=== PATIENT | female | born 1950 | race Caucasian/White ===

== ENCOUNTER → 2016-09-14 | Outpatient (CLI) | payer MEDICARE, OTHER ==
[~2016-09-14] MED LIST: ALEVE220 MG PO; ASPIRIN 81M81 MG/TA2 PO; ATENOLOL PO; BENADRYL PO; BETAMETHASONE D0.05% TP; CELEBREX; CELEBREX 200MG200 MG PO; CETIRIZINE; DOXYCYCLINE 10100 MG PO; FLOMAX 0.40.4 MG/CAP PO; INDOCIN25 MG PO; LEVAQUIN 5500 MG/TAB PO; LORTAB 5/500 501 TAB PO; LORTAB 7.5/5001 TAB PO; MULTIVITAMIN1 CTB PO; MYRBETR50MG PO; NEXIUM 40MG40 MG PO; PHENERGAN W/CO120 ML PO; PIROXICAM; PROBENECID PO; TOVIAZ8 MG PO; TRIAMCINOLONE AC0.13 TP; ULORIC40 MG PO; UROCIT PO; VESICARE PO; WELLBUTRIN XL300 M1 PO; ZITHROMAX TRI-500 MG PO; ZOFRAN 4MG T4 MG/TAB PO; [UNRECOGNIZED DRUG - OTHER]; [UNRECOGNIZED DRUG - REMARK]
== END ==
LOC: MC.RAD 12:45
DX: Z12.31 Encounter for screening mammogram for malignant neoplasm of breast (principal); Z80.3 Family history of malignant neoplasm of breast

== ENCOUNTER → 2016-12-22 | Outpatient (CLI) | payer MEDICARE, OTHER | LOC: COL.RAD 07:43 | DX: Q61.01 Congenital single renal cyst (principal) ==

== ENCOUNTER → 2017-10-08 | Outpatient (CLI) | payer MEDICARE, OTHER | LOC: MC.RAD 08:58 | DX: Z12.31 Encounter for screening mammogram for malignant neoplasm of breast (principal) ==

== ENCOUNTER 2017-10-28 12:21 | Emergency (ER) | payer MEDICARE, OTHER ==
[~2017-10-28] VITALS: Ht 160 cm; Wt 109.1 kg
[2017-10-28 12:22] VITALS: TEMP 99.1
[2017-10-28 13:16] LABS: BASO % 0.4 % (0.0-2.0); EOS # 0.7 (0.0-0.7); EOS % 9.2 % (0-4.0); GRAN % 49.5 % (42.2-75.2); HEMATOCRIT 38.2 % (37.0-47.0); LYMPH # 2.5 (1.2-3.4); LYMPH % 31.2 % (20.0-51.0); MEAN CELL VOLUME 88 fl (80.0-100.0); MEAN CORPUSCULAR HEMOGLOBIN 30 pg (27.0-31.0); MEAN CORPUSCULAR HGB CONC 34 g/dl (33.0-37.0); MONO # 0.8 (0.1-0.6); MONO % 9.3 % (1.7-9.3); PLATELET COUNT 166 K/mm3 (130-400); RED BLOOD COUNT 4.36 M/mm3 (4.10-5.30); REDCELL DISTRIBUTION WIDTH-CV 12.5 % (11.5-14.5)
[2017-10-28 13:19] LABS: INR 1.1 (0.8-3.0); PROTHROMBIN TIME 12.4 SECONDS (9.7-12.8)
[2017-10-28 13:21] LABS: PARTIAL THROMBOPLASTIN TIME 30.6 SECONDS (26.0-37.0)
[2017-10-28 13:26] LABS: ALANINE AMINOTRANSFERASE 27 U/L (9-52); ALKALINE PHOSPHATASE 69 U/L (50-136); ANION GAP 13 mmol/L (7-16); AST,SGOT 21 U/L (15-37); BLOOD UREA NITROGEN 19 mg/dL (7-17); CALCIUM 9.1 mg/dL (8.4-10.2); CARBON DIOXIDE 25 mmol/L (22-30); CHLORIDE 107 mmol/L (98-107); CREATININE, serum 0.82 mg/dL (0.52-1.25); GLUCOSE 114 mg/dL (74-106); POTASSIUM 3.8 mmol/L (3.4-5.0); SODIUM 145 mmol/L (137-145); TOTAL PROTEIN 7.2 gm/dL (6.4-8.2)
[2017-10-28 13:31] LABS: C-REACTIVE PROTEIN < 0.5 mg/dL (0.0-0.9)
[2017-10-28 13:35] LABS: TROPONIN-I < 0.012 ng/mL (0.000-0.034)
[2017-10-28] MEDS ORDERED: CARDIZEM120 MG PO (13:37)
[2017-10-28] MEDS ORDERED: ZESTRIL40 MG PO (13:38)
[2017-10-28] MEDS ORDERED: NITROSTAT0.4 MG/TAB SL (13:39)
[2017-10-28] MEDS ORDERED: CATAPRES-TTS 10.1 M1 TD (13:41)
[2017-10-28] MEDS ORDERED: VESICARE10 MG PO (13:42)
[2017-10-28] MEDS ORDERED: ULORIC40 MG PO (13:43)
[2017-10-28] MEDS ORDERED: NEXIUM 40MG40 MG PO (13:44)
[2017-10-28] MEDS ORDERED: WELLBUTRIN XL150 MG PO (13:45)
[2017-10-28] MEDS ORDERED: NORCO 325 MG-51 TAB PO (13:46)
[2017-10-28] MEDS ORDERED: TRIAMCINOLONE A15 G3 (13:48)
[2017-10-28] MEDS ORDERED: DIPROLENE 0.05%50 GM TOP (13:49)
[2017-10-28] MEDS ORDERED: ESTRACE0.1 MG/GM TOP (13:50)
[2017-10-28] MEDS ORDERED: ALEVE 220MG220 MG PO (13:53)
[2017-10-28] MEDS ORDERED: ZOFRAN 4MG T4 MG/TAB PO (14:15)
[2017-10-28 14:25] VITALS: BP 133/84; PULSE 54
== END 2017-10-28 14:28 | disposition home or self-care (01) ==
LOC: COL.ER 12:21
PROVIDERS: Emergency Medicine
DX: K62.5 Hemorrhage of anus and rectum (principal); R11.0 Nausea; K21.9 Gastro-esophageal reflux disease without esophagitis; Z79.52 Long term (current) use of systemic steroids
CPT/HCPCS: J2405; J7030

== ENCOUNTER → 2018-06-23 | Emergency (ER) | payer MEDICARE, OTHER ==
[~2018-06-23] VITALS: Ht 165.1 cm; Wt 109.5 kg
[~2018-06-23] MED LIST changes: +ALEVE 220MG220 MG PO; +CARDIZEM120 MG PO; +CATAPRES-TTS 10.1 M1 TD; +DIPROLENE 0.05%50 GM TOP; +ESTRACE0.1 MG/GM TOP; +NITROSTAT0.4 MG/TAB SL; +NORCO 325 MG-51 TAB PO; +TRIAMCINOLONE A15 G3; +VESICARE10 MG PO; +WELLBUTRIN XL150 MG PO; +ZESTRIL40 MG PO
[2018-06-23 12:11] VITALS: TEMP 97.7
[2018-06-23 15:26] VITALS: BP 133/77; PULSE 71
== END ==
LOC: COL.ER 12:07
DX: M79.661 Pain in right lower leg (principal); I25.10 Atherosclerotic heart disease of native coronary artery without angina pectoris
CPT/HCPCS: L1846; Q4041

== ENCOUNTER → 2019-01-02 | Outpatient (CLI) | payer MEDICARE, OTHER | LOC: MC.RAD 09:02 | DX: Z12.31 Encounter for screening mammogram for malignant neoplasm of breast (principal) ==

== ENCOUNTER → 2019-03-10 | Outpatient (CLI) | payer MEDICARE, OTHER | LOC: COL.RAD 08:34 | DX: N28.1 Cyst of kidney, acquired (principal) ==

== ENCOUNTER → 2019-07-23 | Outpatient (CLI) | payer MEDICARE, OTHER | LOC: COL.VAS 07:51 | DX: M79.89 Other specified soft tissue disorders (principal); Z96.652 Presence of left artificial knee joint ==

== ENCOUNTER → 2019-08-01 | Outpatient (CLI) | payer MEDICARE, OTHER | LOC: COL.VAS 10:38 | DX: Z13.6 Encounter for screening for cardiovascular disorders (principal); M79.89 Other specified soft tissue disorders; M79.662 Pain in left lower leg ==

== ENCOUNTER → 2020-01-22 | Outpatient (CLI) | payer MEDICARE, OTHER | LOC: MC.RAD 12:49 | DX: Z12.31 Encounter for screening mammogram for malignant neoplasm of breast (principal) ==

== ENCOUNTER 2020-02-21 17:13 | Emergency (ER) | payer MEDICARE, OTHER ==
[~2020-02-21] VITALS: Ht 162.6 cm; Wt 112.7 kg
[2020-02-21 19:59] LABS: ANION GAP 8 mmol/L (7-16); BLOOD UREA NITROGEN 31 mg/dL (7-17); CALCIUM 9.2 mg/dL (8.4-10.2); CARBON DIOXIDE 27 mmol/L (22-30); CHLORIDE 104 mmol/L (98-107); CREATININE, serum 0.84 (0.52-1.25); GLUCOSE 111 mg/dL (74-106); SODIUM 138 mmol/L (137-145)
[2020-02-21 20:06] LABS: C-REACTIVE PROTEIN < 0.5 mg/dL (0.0-0.9)
[2020-02-21 20:09] LABS: BASO % 0.4 % (0.0-2.0); EOS # 1.2 (0.0-0.7); EOS % 12.7 % (0-4.0); GRAN # 4.5 (1.4-6.5); GRAN % 46.1 % (42.2-75.2); HEMATOCRIT 38.3 % (37.0-47.0); HEMOGLOBIN 13.4 g/dl (12.5-16.0); LYMPH % 30.7 % (20.0-51.0); MEAN CELL VOLUME 86 fl (80.0-100.0); MEAN CORPUSCULAR HEMOGLOBIN 30 pg (27.0-31.0); MEAN CORPUSCULAR HGB CONC 35 g/dl (33.0-37.0); MEAN PLATELET VOLUME 11.5 fl (7.4-10.4); MONO % 9.8 % (1.7-9.3); PLATELET COUNT 190 K/mm3 (130-400); RED BLOOD COUNT 4.46 M/mm3 (4.10-5.30); REDCELL DISTRIBUTION WIDTH-CV 12.3 % (11.5-14.5)
[2020-02-21] MEDS ORDERED: DOXYCYCLINE 10100 MG PO (20:52)
[2020-02-21 21:00] VITALS: BP 146/74; PULSE 65; TEMP 97.8
== END 2020-02-21 21:09 | disposition home or self-care (01) ==
LOC: COL.ER 17:13
PROVIDERS: Physician Assistant
DX: L03.116 Cellulitis of left lower limb (principal); I10 Essential (primary) hypertension; Z90.710 Acquired absence of both cervix and uterus; Z95.9 Presence of cardiac and vascular implant and graft, unspecified

== ENCOUNTER → 2020-04-05 | Outpatient (CLI) | payer MEDICARE, OTHER | LOC: COL.RAD 07:15 | DX: K21.9 Gastro-esophageal reflux disease without esophagitis (principal) | CPT/HCPCS: A9541 ==

== ENCOUNTER 2021-01-07 06:18 | Emergency (ER) | payer MEDICARE, OTHER ==
[~2021-01-07] VITALS: Ht 162.6 cm; Wt 115.9 kg
[2021-01-07 06:24] VITALS: BP 178/90; TEMP 97.4
[2021-01-07 06:44] VITALS: PULSE 66
== END 2021-01-07 06:44 | disposition home or self-care (01) ==
LOC: COL.ER 06:18
DX: S30.861A Insect bite (nonvenomous) of abdominal wall, initial encounter (principal); S70.311A Abrasion, right thigh, initial encounter; W57.XXXA Bitten or stung by nonvenomous insect and other nonvenomous arthropods, initial encounter

== ENCOUNTER → 2021-02-03 | Outpatient (CLI) | payer MEDICARE, OTHER ==
[~2021-02-03] MED LIST changes: +ALDACTONE 25MG25 M1 PO; +BENADRYL ALLERG25 M2 PO; +COZAAR 25MG25 MG/TAB PO; +LASIX 40MG TABL40 MG PO
== END ==
LOC: MC.RAD 07:48
DX: Z12.31 Encounter for screening mammogram for malignant neoplasm of breast (principal)

== ENCOUNTER 2021-04-15 08:38 | Day surgery (SDC) | payer MEDICARE, OTHER ==
[~2021-04-15] VITALS: Ht 162.7 cm; Wt 120.7 kg
[2021-04-15] VITALS (16 sets, daily range): BP systolic 100–141; BP diastolic 55–74; PULSE 50–63; TEMP 97.7
[~2021-04-15 08:38] MED LIST changes: -ALDACTONE 25MG25 M1 PO; -BENADRYL ALLERG25 M2 PO; -COZAAR 25MG25 MG/TAB PO; -LASIX 40MG TABL40 MG PO
[2021-04-15 09:44] LABS: HEMOGLOBIN 12.4 g/dl (12.5-16.0); MEAN CELL VOLUME 89 fl (80.0-100.0); MEAN CORPUSCULAR HEMOGLOBIN 31 pg (27.0-31.0); MEAN CORPUSCULAR HGB CONC 35 g/dl (33.0-37.0); MEAN PLATELET VOLUME 11.1 fl (7.4-10.4); PLATELET COUNT 197 K/mm3 (130-400); RED BLOOD COUNT 3.98 M/mm3 (4.10-5.30); REDCELL DISTRIBUTION WIDTH-CV 12.8 % (11.5-14.5)
[2021-04-15 09:48] LABS: HEMATOCRIT 35.6 % (37.0-47.0)
[2021-04-15 09:50] LABS: INR 1.1 (0.8-3.0); PROTHROMBIN TIME 11.9 SECONDS (9.7-12.8)
[2021-04-15 09:53] LABS: PARTIAL THROMBOPLASTIN TIME 28.2 SECONDS (26.0-37.0)
[2021-04-15 09:57] LABS: ALBUMIN 4.1 gm/dL (3.5-5.0); BILIRUBIN,TOTAL 1.4 mg/dL (0.0-1.0); CALCIUM 9.5 mg/dL (8.4-10.2); CREATININE, serum 1.24 (0.52-1.25); POTASSIUM 4.2 mmol/L (3.4-5.0); TOTAL PROTEIN 7.2 gm/dL (6.4-8.2)
[2021-04-15] MEDS ORDERED: ALDACTONE 25MG25 M1 PO (10:00)
[2021-04-15] MEDS ORDERED: BENADRYL ALLERG25 M2 PO (10:01)
[2021-04-15] MEDS ORDERED: COZAAR 25MG25 MG/TAB PO (10:02)
[2021-04-15] MEDS ORDERED: LASIX 40MG TABL40 MG PO (10:04)
--- NOTE | 2021-04-15 11:25 | NUR ---
SEE MERGE FOR ALL MEDICATION ADMINISTRATION, INTRA PROCEDURE SEDATION ASSESSMENTS
--- NOTE | 2021-04-15 17:00 | NUR ---
Pt assisted up to restroom following 4 hr bedrest period. Upon walking back into room, pt reported bleeding from rt groin venous puncture site. Pt assisted back to bed. Manual pressure held to groin site x10 minutes. Bleeding stops with pressure. Area cleaned and new sterile dressing applied. Dr Jasmine notified of bleeding, he states pt should remain in bed for additional hour, then attempt to walk again. If no further bleeding at that time, pt may discharge home. Air was also removed from TR band in 2ml increments beginning at 1420. No bleeding from rt radial puncuture site. It was dressed with folded 2x2 and bandaid. DC instructions have also been reviewed with pt and . Both express understanding. They also express understanding of additional bedrest time due to bleeding from rt groin site. Call light in reach.
--- NOTE | 2021-04-15 18:21 | NUR ---
Pt assisted out of bed to attempt abmulation in servin. She walks 50 feet with no further from rt groin site. Dressing remains clean, dry and intact. INT DC'd with catheter intact. She is assisted out to 's car by wheelchair with belongings.
== END 2021-04-15 18:23 | disposition home or self-care (01) ==
LOC: COL.CAR 08:38
PROVIDERS: Internal Medicine Cardiovascular Disease
DX: I25.10 Atherosclerotic heart disease of native coronary artery without angina pectoris (principal); I10 Essential (primary) hypertension; I87.2 Venous insufficiency (chronic) (peripheral); I48.0 Paroxysmal atrial fibrillation; R94.39 Abnormal result of other cardiovascular function study; Z79.82 Long term (current) use of aspirin; Z79.899 Other long term (current) drug therapy
CPT/HCPCS: C1769; C1894; J1644; J2250; J2405; J3010; Q9967

== ENCOUNTER → 2022-02-06 | Outpatient (CLI) | payer MEDICARE, OTHER ==
[~2022-02-06] MED LIST changes: +ALDACTONE 25MG25 M1 PO; +BENADRYL ALLERG25 M2 PO; +COZAAR 25MG25 MG/TAB PO; +LASIX 40MG TABL40 MG PO
== END ==
LOC: MC.RAD 07:50
DX: Z12.31 Encounter for screening mammogram for malignant neoplasm of breast (principal)

== ENCOUNTER → 2023-12-14 | Outpatient (CLI) | payer MEDICARE, OTHER ==
[~2023-12-14] MED LIST changes: +PROAIR HFA0.09 MG/AC IH
== END ==
LOC: COL.RAD 08:32
DX: M25.561 Pain in right knee (principal)
CPT/HCPCS: A9503-JZ

== ENCOUNTER 2024-02-07 07:36 | Emergency (ER) | payer MEDICARE, OTHER ==
[~2024-02-07] VITALS: Ht 160 cm; Wt 105.5 kg
[2024-02-07 07:41] VITALS: TEMP 97.7
[2024-02-07 09:26] LABS: BASO % 0.2 % (0.0-2.0); EOS # 0.1 K/mm3 (0.0-0.7); EOS % 1.5 % (0.0-4.0); GRAN # 5.4 K/mm3 (1.4-6.5); GRAN % 61.8 % (42.2-75.2); HEMATOCRIT 40.6 % (37.0-47.0); HEMOGLOBIN 13.5 g/dl (12.5-16.0); LYMPH # 2.3 K/mm3 (1.2-3.4); LYMPH % 26.7 % (20.0-51.0); MEAN CELL VOLUME 89 fl (80.0-100.0); MEAN CORPUSCULAR HEMOGLOBIN 30 pg (27-31); MEAN CORPUSCULAR HGB CONC 33 g/dl (33.0-37.0); MEAN PLATELET VOLUME 12.3 fl (7.4-10.4); MONO # 0.8 K/mm3 (0.1-0.6); MONO % 9.5 % (1.7-9.3); PLATELET COUNT 160 K/mm3 (130-400); RED BLOOD COUNT 4.55 M/mm3 (4.10-5.30)
[2024-02-07 09:36] LABS: ALANINE AMINOTRANSFERASE 10 U/L (0-55); ALBUMIN 3.6 g/dL (3.4-4.8); ALKALINE PHOSPHATASE 44 U/L (40-150); ANION GAP 9 mmol/L (7-16); AST,SGOT 14 U/L (5-34); BILIRUBIN,TOTAL 2.3 mg/dL (0.2-1.2); BLOOD UREA NITROGEN 29 mg/dL (10-20); CALCIUM 9.3 mg/dL (8.4-10.2); CHLORIDE 109 mEq/L (98-107); CREATININE, serum 1.16 mg/dL (0.57-1.11); GLUCOSE 109 mg/dL (70-99); POTASSIUM 4.2 mEq/L (3.5-4.5); SODIUM 142 mEq/L (136-145); TOTAL PROTEIN 6.9 g/dl (6.2-8.1)
[2024-02-07 09:42] LABS: TROPONIN-I < 0.010 ng/mL (0.00-0.033)
[2024-02-07] MEDS ORDERED: *Potassium Replacement Protocol MC SCH (09:45)
[2024-02-07] MEDS ORDERED: NS 100 ML IV SCH (10:25)
[2024-02-07] MEDS ORDERED: Iohexol 300 - 100 ML VIAL IV ONE (10:25)
[2024-02-07 11:25] VITALS: BP 122/59; PULSE 54
== END 2024-02-07 11:32 | disposition home or self-care (01) ==
LOC: COL.ER 07:36
PROVIDERS: Personal Emergency Response Attendant
DX: R20.2 Paresthesia of skin (principal)
CPT/HCPCS: Q9967

== ENCOUNTER → 2024-02-12 | Outpatient (CLI) | payer MEDICARE, OTHER | LOC: MC.RAD 07:34 | DX: Z12.31 Encounter for screening mammogram for malignant neoplasm of breast (principal); R92.0 Mammographic microcalcification found on diagnostic imaging of breast ==

== ENCOUNTER 2024-03-04 07:51 | Day surgery (SDC) | payer MEDICARE, OTHER ==
[~2024-03-04] VITALS: Ht 160 cm; Wt 107.8 kg
[~2024-03-04 07:51] MED LIST changes: +LR 1,000 ML IV SCH
[2024-03-04] MEDS ORDERED: COREG12.5 MG PO (09:20)
[2024-03-04] MEDS ORDERED: DUPIXENT P200 MG/1.1 SQ (09:21)
[2024-03-04] MEDS ORDERED: DIFLUCAN150 MG PO (09:23)
[2024-03-04] MEDS ORDERED: JARDIANCE10 (09:24)
[2024-03-04] MEDS ORDERED: Lidocaine PF 2% (20 MG/ML) 5 ML VIAL ONE (09:26)
[2024-03-04] MEDS ORDERED: Ondansetron 4 MG/2 ML VIAL ONE (09:26)
[2024-03-04] MEDS ORDERED: fentaNYL 50 MCG/ML 2 ML VIAL ONE (09:27)
[2024-03-04] MEDS ORDERED: ANTIVERT 12.512.5 MG PO (09:27)
[2024-03-04] MEDS ORDERED: Midazolam 2 MG/2 ML VIAL ONE (09:27)
[2024-03-04] MEDS ORDERED: PRIL40 PO (09:28)
[2024-03-04] MEDS ORDERED: DITROPAN 5MG TAB5 MG PO (09:29)
[2024-03-04] MEDS ORDERED: CRESTOR 10MG10 MG PO (09:30)
[2024-03-04] MEDS ORDERED: PROLIA60 MG/ML SQ (09:31)
[2024-03-04] MEDS ORDERED: ULORIC40 MG PO (09:31)
[2024-03-04] MEDS ORDERED: MAGNESIUM OXID500 MG PO (09:32)
[2024-03-04] MEDS ORDERED: VITAMIND3 5000 PO (09:33)
[2024-03-04] MEDS ORDERED: ALLEGRA 180MG180 MG PO (09:33)
[2024-03-04] MEDS ORDERED: ASPIRIN 81M81 MG/TA2 PO (09:34)
[2024-03-04] MEDS ORDERED: CLINDAMYCIN 900 MG/50 ML IV ONE (10:00)
[2024-03-04] MEDS ORDERED: [UNRECOGNIZED DRUG - OTHER] TP (10:14)
[2024-03-04 10:19] VITALS: BP 114/60; PULSE 51; TEMP 97.4
[2024-03-04] MEDS ORDERED: NS Flush 25 ML IV Bag IV ONE (10:30)
[2024-03-04] MEDS ORDERED: BUPivacaine PF 0.5% w EPI (1:200,000) 10 ML VIAL SQ ONE (11:28)
[2024-03-04] MEDS ORDERED: LIDOCAINE IJ ONE (11:28)
[2024-03-04] MEDS ORDERED: fentaNYL 50 MCG/ML 1 ML SYRINGE/VIAL [PACU/SDC ONLY] IV SCH (13:22)
[2024-03-04] MEDS ORDERED: NORCO 325 MG-51 TAB PO (13:28)
[2024-03-04] MEDS ORDERED: Morphine 4 MG/ML VIAL IV PRN (13:30)
[2024-03-04] MEDS ORDERED: Ondansetron 4 MG/2 ML VIAL IV PRN (13:30)
[2024-03-04 13:45] VITALS: BP 118/83; PULSE 60; TEMP 97.5
[2024-03-04 14:00] VITALS: BP 124/73; PULSE 56
[2024-03-04 14:10] VITALS: BP 128/62; PULSE 56
--- NOTE | 2024-03-04 14:30 | NUR ---
1345 RETURNS TO ROOM 7 PER CART WITH HOB ELEVATED 40 DEGREES. AWAKE, ALERT, RESP UNLABORED. VITAL SIGNS OBTAINED. RIGHT BREAST DRESSING CLEAN DRY AND INTACT. RIGHT BREAST/AXILLA SOFT WITH GENTLE PALPATION. REPORTS MILD DISCOMFORT. DENIES NEED FOR PAIN MED. CALL LIGHT AT SIDE, IN ROOM. 1400 HOB ELEVATED 75 DEGREES. TOLERATES PO SODA WITHOUT NAUSEA. DISCHARGE INSTRUCTIONS REVIEWED. PATIENT VERBALIZES UNDERSTANDING. COPY PROVIDED IN DISCHARGE FOLDER 9690 SITS ON EDGE OF CART. DRESSES SELF WITH MINIMAL ASSIST FROM
== END 2024-03-04 14:30 | disposition home or self-care (01) ==
LOC: SDCO 07:51
DX: C50.411 Malignant neoplasm of upper-outer quadrant of right female breast (principal); E11.22 Type 2 diabetes mellitus with diabetic chronic kidney disease; I12.9 Hypertensive chronic kidney disease with stage 1 through stage 4 chronic kidney disease, or unspecified chronic kidney disease; N18.30 Chronic kidney disease, stage 3 unspecified; K21.9 Gastro-esophageal reflux disease without esophagitis; Z79.84 Long term (current) use of oral hypoglycemic drugs; Z85.828 Personal history of other malignant neoplasm of skin
CPT/HCPCS: A4648; A9520-JZ; J0665; J0690; J0737; J2250; J2405; J2704; J3010; J7120; Q9968